=== PATIENT | female | born 1980 | race Caucasian/White ===

== ENCOUNTER 2018-02-26 15:42 | Emergency (ER) | payer BC ==
[2018-02-26] MEDS: DIPHENHYDRAMINE 50 MG INJ IM (15:59)
[2018-02-26] MEDS: METHYLPREDNISOLONE 125 MG INJ IM (16:39)
[2018-02-26] MEDS: FAMOTIDINE 20 MG TAB PO (16:53)
== END 2018-02-26 16:57 | disposition home or self-care (01) ==
LOC: FTE 15:42
DX: L50.9 Urticaria, unspecified (principal)
CPT/HCPCS: 96372; 99284-25

== ENCOUNTER → 2019-02-03 | Outpatient (CLI) | payer BC | END | disposition home or self-care (01) | LOC: U/S 10:11 | DX: R10.2 Pelvic and perineal pain (principal) | CPT/HCPCS: 76830; 76856 ==